=== PATIENT | female | born 1985 | race Caucasian/White ===

== ENCOUNTER 2025-03-01 20:59 | Emergency (ER) | payer OTHER, SELFPAY ==
[2025-03-01 20:59] VITALS: BP 128/76; PULSE 123; RESP 18; TEMP 36.9; O2SAT 100; BMI 26.6
--- NOTE | 2025-03-01 20:59 | DI.RAD.S_ITS ---
PROCEDURE: XR CHEST 1V INDICATIONS: Palpitations TECHNIQUE: One view of the chest was acquired. COMPARISON: None. FINDINGS: Surgical changes and devices: None. Lungs and pleura: Mild congestion is seen. No definite focal infiltrate. No pleural effusions or pneumothorax. Mediastinum: Mediastinal contours appear normal. Heart size is normal. Bones and chest wall: No suspicious bony lesions. Overlying soft tissues appear unremarkable. IMPRESSION: Mild pulmonary vascular congestion. No focal infiltrate, pleural effusion or pneumothorax. Dictated by: Tirso Mims M.D. on 03/01/2025 at 21:40 Approved by: Tirso Mims M.D. on 03/01/2025 at 21:40
--- NOTE | 2025-03-01 20:59 | EKG_ITS ---
[address] [address] Test Date: 2025-03-01 Pat Name: Cammy Haines Department: [facility] Room: Gender: Female Lead Java J2Ee Developer: PAO RDZ : 1985 Requested By: Order Number: [id number] Reading MD: Edouard Zaldivar Measurements Intervals [place] Rate: 103 P: 71 MT: 158 QRS: 57 QRSD: 76 T: 49 QT: 330 QTc: 432 Interpretive Statements Sinus tachycardia Low voltage QRS Electronically Signed On 03-02-2025 18:36:48 PDT by Edouard Zaldivar
[2025-03-01 21:12] LABS: Add Manual Diff / Slide Review NO; Basophils Absolute Auto 100 /uL (0-100); Basophils Percent Auto 0.6 % (0-2); Eosinophils Absolute Auto 200 /uL (0-450); Eosinophils Percent Auto 1.7 % (2-4); Hematocrit 37.9 % (36-46); Hemoglobin 13.1 g/dL (12.0-16.0); Lymphocytes Absolute Auto 3400 /uL (1100-4500); Lymphocytes Percent Auto 36.1 % (25-40); Mean Corpuscular HGB Conc 34.5 % (30-36); Mean Corpuscular Hemoglobin 30.5 PG (26-34); Mean Corpuscular Volume 88.4 fL (80-100); Monocytes Absolute Auto 600 /uL (0-900); Monocytes Percent Auto 6.1 % (3-14); Neutrophils Absolute Auto 5300 /uL (1500-7000); Neutrophils Percent Auto 55.5 % (50-75); Platelet Count 202 X10^3/uL (150-400); Red Blood Cell Count 4.29 X10^6/uL (4.0-5.2); Red Cell Distribution Width 13.2 % (11.6-14.8); White Blood Cell Count 9.5 X10^3/uL (4.5-11.0)
[2025-03-01 21:20] LABS: INR 1.1 (0.9-1.3); Prothrombin Time 11.9 SECONDS (9.4-12.5)
[2025-03-01 21:22] LABS: PTT Partial Thromboplastin Tim 31 SECONDS (25.1-36.5)
[2025-03-01 21:23] LABS: Alanine Aminotransferase 18 IU/L (<35); Albumin 4.4 g/dL (3.5-5.0); Albumin Globulin Ratio 1.5 (1.0-2.8); Alkaline Phosphatase 52 U/L (38-126); Aspartate Aminotransferase 27 IU/L (14-36); BUN Creatinine Ratio 23.8 (6-22); Bilirubin Total 0.5 mg/dL (0.2-1.3); Blood Urea Nitrogen 15 mg/dL (7-17); Carbon Dioxide 21 mmol/L (22-32); Chloride 102 mmol/L (98-107); Creatine Kinase 77 U/L (30-135); Estimated Glomerular Filt Rate > 60 mL/min (>60); Globulin 2.9 g/dL (1.7-4.1); Glucose 294 mg/dL (70-99); HEMOLYSIS < 15 (0-50); Lipase 79 U/L (23-300); Magnesium 1.7 mg/dL (1.6-2.3); Potassium 3.3 mmol/L (3.4-5.1); Sodium 137 mmol/L (137-145); Total Protein 7.3 g/dL (6.3-8.2)
[2025-03-01 21:35] LABS: NT-proBNP (BNP-Adult 18+) 26 pg/mL (<125); Troponin I < 0.012 ng/mL (0.01-0.034)
--- NOTE | 2025-03-01 23:22 | EKG_ITS ---
[address] [address] Test Date: 2025-03-01 Pat Name: Cammy Haines Department: [facility] Room: Gender: Female Fleet Operations Manager: PAO RDZ : 1985 Requested By: Order Number: [id number] Reading MD: Edouard Zaldivar Measurements Intervals [place] Rate: 113 P: 74 MN: 148 QRS: 59 QRSD: 74 T: 55 QT: 326 QTc: 447 Interpretive Statements Sinus tachycardia Electronically Signed On 03-02-2025 18:36:49 PDT by Edouard Zaldivar
[2025-03-01 23:57] LABS: Troponin I < 0.012 ng/mL (0.01-0.034)
[2025-03-02 01:01] VITALS: BP 126/75; PULSE 100; RESP 16; O2SAT 100
--- NOTE | 2025-03-02 01:04 | ED_ITS ---
HPI - Arrhythmia/Palpitations General Chief Complaint: Arrhythmia/Palpitations Stated Complaint: palpitations Time Seen by Provider: 03/02/25 01:00 Source: patient Mode of arrival: EMS History of Present Illness HPI narrative: 39-year-old woman presents by medics with complaints of acute onset rapid heart rate. She currently is on a compounded GLP 1 inhibitor, has a history of anxiety not currently struggling with anxiety was out this evening with her enjoying dinner when all of sudden her heart rate went to 150 as noted by her apple watch with a sense of palpitations. Medics were eventually called in the confirmed heart rate was in the 150 range sinus rhythm. The time it took to transport her to the emergency department heart rate is down to the 110 range. Aside from noting some palpitations and noting the rapid heart rate she did not complain of chest pain, dyspnea, no nausea, vomiting or diaphoresis. She had a similar episode a little over a week ago was seen and evaluated at the [place] [facility] with no significant abnormalities appreciated. She followed up with the primary care physician the following day additional thyroid studies were ordered Zio patch was requested but initially denied by her insurance and has been re-requested. Related Data Previous Rx's Medication Instructions Recorded propranolol 20 mg tablet 20 mg PO BID PRN palpitations #30 03/02/25 tabs Allergies Allergy/AdvReac Type Severity Reaction Status Date / Time No Known Drug Allergies Allergy Verified 03/01/25 20:59 Review of Systems Review of Systems Narrative: Pertinent positive and negative findings as per HPI Patient History Social History Smoking Status: Never smoker Smoking Status: Never smoker Exam Initial Vital Signs Initial Vital Signs: Vital Signs Temperature 98.4 F 03/01/25 20:59 Pulse Rate 123 H 03/01/25 20:59 Respiratory Rate 18 03/01/25 20:59 Blood Pressure 128/76 03/01/25 20:59 Pulse Oximetry 100 03/01/25 20:59 Oxygen Delivery Method Room Air 03/01/25 20:59 General: Healthy appearing, in no acute distress. Able to give a complete and coherent history. Well-nourished well-developed HEENT: Moist mucous membranes, normal sclera with reactive pupils, Respiratory: Lungs WithFull and symmetrical air movement Cardiac: Regular rate and rhythm, mild tachycardia just above 100,no murmurs Abdomen: Soft, nontender, no rebound or guarding, no flank pain Skin: Warm and dry, no rashes Neurologic: Grossly neurologically intact with no obvious asymmetries or abnormalities Extremities: No trauma, well perfused Psych: Cooperative, appropriate insight and affect Course Orders Ordered: ED Orders 03/01/25 20:59 XR chest 1V Stat EKG-12 Lead Stat 03/01/25 21:00 Complete Blood Count AUTO DIFF Stat Comprehensive Metabolic Panel Stat Lipase Stat Magnesium Stat NT-proBNP (BNP-Adult 18+) Stat PTT Partial Thromboplastin Aldo Stat Prothrombin Time INR Stat Troponin & CK Cardiac Panel Stat 03/01/25 23:00 EKG-12 Lead Stat 03/01/25 23:26 Troponin I Stat Discontinued Medications Aspirin (Aspirin 81 Mg Chew Tab) 324 mg PO NOW ONE Stop: 03/01/25 21:00 Vital Signs Vital signs: Vital Signs - 8 hr 03/01/25 20:59 03/02/25 01:01 03/02/25 01:01 Temperature 98.4 F Pulse Rate 123 H 100 H Respiratory Rate 18 16 Blood Pressure 128/76 126/75 Pulse Oximetry 100 100 Oxygen Delivery Method Room Air MDM - Arrhythmia/Palpitations Lab Data 03/01/25 21:00 03/01/25 21:00 Labs: Lab Results 03/01/25 03/01/25 Range/Units 21:00 23:26 WBC 9.5 (4.5-11.0) X10^3/uL RBC 4.29 (4.0-5.2) X10^6/uL Hgb 13.1 (12.0-16.0) g/dL Hct 37.9 (36-46) % MCV 88.4 (80-100) fL MCH 30.5 (26-34) PG MCHC 34.5 (30-36) % RDW 13.2 (11.6-14.8) % Plt Count 202 (150-400) X10^3/uL Neut % (Auto) 55.5 (50-75) % Lymph % (Auto) 36.1 (25-40) % [place] % (Auto) 6.1 (3-14) % Eos % (Auto) 1.7 L (2-4) % Baso % (Auto) 0.6 (0-2) % Neut # (Auto) 5300 (8863-8324) /uL Lymph # (Auto) 3400 (8160-0662) /uL [place] # (Auto) 600 (0-900) /uL Eos # (Auto) 200 (0-450) /uL Baso # (Auto) 100 (0-100) /uL PT 11.9 (9.4-12.5) SECONDS INR 1.1 (0.9-1.3) APTT 31 (25.1-36.5) SECONDS Sodium 137 (137-145) mmol/L Potassium 3.3 L (3.4-5.1) mmol/L Chloride 102 (98-107) mmol/L Carbon Dioxide 21 L (22-32) mmol/L BUN 15 (7-17) mg/dL Creatinine 0.63 (0.52-1.04) mg/dL Estimated GFR > 60 (>60) mL/min BUN/Creatinine Ratio 23.8 H (6-22) Glucose 294 H (70-99) mg/dL Calcium 9.0 (8.4-10.2) mg/dL Magnesium 1.7 (1.6-2.3) mg/dL Total Bilirubin 0.5 (0.2-1.3) mg/dL AST 27 (14-36) IU/L ALT 18 (<35) IU/L Alkaline Phosphatase 52 (38-126) U/L Total Creatine Kinase 77 (30-135) U/L Troponin I < 0.012 < 0.012 (0.01-0.034) ng/mL NT-Pro-B Natriuret Pep 26 (<125) pg/mL Total Protein 7.3 (6.3-8.2) g/dL Albumin 4.4 (3.5-5.0) g/dL Globulin 2.9 (1.7-4.1) g/dL Albumin/Globulin Ratio 1.5 (1.0-2.8) Lipase 79 (23-300) U/L [facility] Narrative Medical decision making narrative: 39-year-old woman presents with acute onset sinus tachycardia with no obvious explanation for why her heart rate increased so rapidly. No evidence of atrial fibrillation, congestive heart failure acute coronary syndrome, she is not hypoxic blood pressure is unremarkable is feeling better as her ER stay proceeds. Cardiac workup shows essentially normal EKGs and normal serial troponins. No electrolyte abnormalities appreciated. Chest x-ray is unremarkable. Discussed with her all of these findings including similar ER workup almost a week ago, primary care evaluation. I did suggest that she contact her primary care doctor to note the 2nd Emergency room Department to see if that might expedite the referral for a Zio patch. In the meantime suggested that she hold her compounded GLP 1 inhibitor case there is some sort of temporal correlation between transient tachycardia and recent injection. Have also given her brief prescription for propranolol 20 mg to use as needed should she have significant palpitations. Currently no indication for hospitalization or additional workup. she is safe for discharge Discharge Plan Departure Patient Disposition: Home Clinical Impression: Palpitations, Sinus tachycardia Instructions: DI for Palpitations Activity Restrictions/Additional Instructions: thank you for coming in today, it is frightening when all of a sudden your heart rate is beating so fast. Fortunately, your workup in the emergency department was quite reassuring. There was no sign of a heart attack, heart attack like syndrome, heart failure, infection. The rapid rhythm that you felt was a sinus tachycardia, this was not a pathologic rhythm such as atrial fibrillation. Your heart rate slowed down appropriately over the course of your emergency room stay. You mentioned that you have had panic attacks before and this feels very different. That make sense. You have spoken with your primary care doctor and it sounds like they have may correct recommendations and looking at remainder of thyroid studies and a Zio patch has been ordered. I would recommend that you let them know you had another episode that resulted in an ER visit to see if that might expedite insurance approving the Zio patch. In the meantime, I do believe it is safe for you to go home. I am going to give you a prescription of the medicine called propranolol. This is a blood pressure and heart rate medication. In very low doses it can be helpful when you are having frequent palpitations in simply lowering your heart rate for a brief period of time. I would recommend that you keep this in your personal close by so if you have an episode you can take a dose of the propranolol. It is safe to take it up to twice a day if needed you mentioned that you were on a compounded GLP 1 inhibitor. You have noted that the couple of episodes of tachycardia recently do seem to be related to Re dosing of this medication and have decided to hold this medication. I think that is a good idea. The next time this happens it is okay to remind yourself that you have had a thorough workup, this is not life-threatening, it is okay to try the propranolol. If there are new symptoms or worsening symptoms you can return to the emergency department and I am happy to re-evaluate Prescriptions: New propranolol 20 mg tablet 20 mg PO BID PRN (Reason: palpitations) Qty: 30 0RF Stand Alone Forms: Patient Portal/API/Survey
== END 2025-03-02 01:45 | disposition home or self-care (01) ==
PROVIDERS: Emergency Provider Emergency Medicine
DX: R00.2 Palpitations (principal); R00.0 Tachycardia, unspecified
CPT/HCPCS: 71045; 80053; 82550; 83690; 83735; 83880; 84484; 85025; 85610; 85730; 93005; 99281; 99284